=== PATIENT | female | born 1975 | race Caucasian/White ===

== ENCOUNTER 2020-02-24 11:51 | Inpatient (IN) ==
[2020-02-24] MEDS ORDERED: Ipratropium/Albuterol Neb 3 ML IH ONE ×2 (12:21→13:27)
[2020-02-24 12:29] LABS: Basophils % 0.2 %; Eosinophils # 0.1 K/mcL (0.0-0.6); Eosinophils % 0.5 %; Hematocrit 37.1 % (35.3-44.9); Immature Granulocytes % 0.5 % (0-4); Lymphocytes # 2.7 K/mcL (0.6-4.6); Lymphocytes % 21.1 %; Mean Corpuscular HGB Conc 29.6 g/dL (31.6-35.5); Mean Corpuscular Hemoglobin 23.9 pg (28.0-33.3); Mean Corpuscular Volume 80.5 fL (83.0-100.0); Mean Platelet Volume 9.4 fL (9.4-12.4); Monocytes # 0.5 K/mcL (0.0-1.3); Monocytes % 3.6 %; Neutrophils # 9.4 K/mcL (1.6-8.9); Platelet Count 332 K/mcL (140-400); Red Blood Count 4.61 M/mcL (3.82-4.97); Red Cell Distribution Width 16.5 % (11.5-14.5); Segmented Neutrophils % 74.1 %; White Blood Count 12.7 K/mcL (4.3-11.1)
[2020-02-24 12:33] LABS: VBG HCO3 30 mEq/L (21-27); VBG PCO2 51 mmHg (41-51); VBG PH 7.37 pH Units (7.32-7.42); VBG PO2 45 mmHg (25-50)
[2020-02-24 12:40] LABS: INR 1.1; Prothrombin Time 12.2 Seconds (9.4-12.1)
[2020-02-24 12:42] LABS: Activated Partial Thrombo Time 27.1 Seconds (26.0-36.0)
[2020-02-24 12:47] LABS: Troponin I < 0.03 ng/mL (< 0.04)
[2020-02-24 12:49] LABS: Alanine Aminotransferase 18 Units/L (7-52); Albumin 4.1 g/dL (3.5-5.7); Albumin/Globulin Ratio 1.4 (1.1-2.2); Alkaline Phosphatase 65 Units/L (34-104); Aspartate Amino Transferase 16 Units/L (13-39); BUN/Creatinine Ratio 7 (6-26); Bilirubin,Direct 0.1 mg/dL (0.0-0.2); Bilirubin,Indirect 0.3 mg/dL (0.0-1.0); Bilirubin,Total 0.4 mg/dL (0.3-1.0); Blood Urea Nitrogen 6 mg/dL (6-20); Calcium 9.7 mg/dL (8.6-10.3); Carbon Dioxide 30 mEq/L (23-29); Chloride 99 mEq/L (98-107); Globulin 2.9 g/dL (2.4-3.5); Glucose 160 mg/dL (70-105); Osmolality,Calculated 283 (280-300); Sodium 136 mEq/L (136-145); eGFR For African Americans > 60 (> 60); eGFR For Non-African Americans > 60 (> 60)
[2020-02-24] MEDS ORDERED: Nicotine 21 MG PATCH.TD24 TD ONE ×2 (13:27→13:43)
[2020-02-24] MEDS ORDERED: Fluticasone Propionate Nasal 50 MCG/SPRAY BOTTLE NS PRN (13:43)
[2020-02-24] MEDS ORDERED: Dextrose Gel 15 GM/37.5 ML TUBE PO PRN ×2 (13:43)
[2020-02-24] MEDS ORDERED: D5% in Water 1,000 ML IVC PRN (13:43)
[2020-02-24] MEDS ORDERED: Mag Hydrox/Al Hydrox/Simeth 30 ML UDC PO PRN (13:43)
[2020-02-24] MEDS ORDERED: Naloxone 0.4 MG/ML INJ IVP PRN (13:43)
[2020-02-24] MEDS ORDERED: Saline Nasal Spray 44 ML BOTTLE NS PRN (13:43)
[2020-02-24] MEDS ORDERED: Ondansetron 4 MG/2 ML VIAL IVP PRN (13:43)
[2020-02-24] MEDS ORDERED: Acetaminophen 325 MG TABLET PO PRN (13:43)
[2020-02-24] MEDS ORDERED: *HR* Dextrose 50 % in Water (Vial) 50 ML VIAL IVP PRN (13:43)
[2020-02-24] MEDS: ARIPiprazole 5 MG TABLET PO SCH (14:24)
[2020-02-24] MEDS: (Linagliptin [Tradjenta] 5 MG) PO SCH (14:58)
[2020-02-24] MEDS ORDERED: Ipratropium/Albuterol Neb 3 ML IH SCH (15:00)
[2020-02-24] MEDS ORDERED: Albuterol 2.5 MG/3 ML NEBULIZER IH ONE (16:41)
[2020-02-24] MEDS ORDERED: Insulin LISPRO 300 UNITS/3 ML VIAL SQ SCH (18:00)
[2020-02-24] MEDS: MethylPREDNISolone 40 MG/ML VIAL IVP SCH (18:31)
[2020-02-24] MEDS: rOPINIRole 1 MG TABLET PO SCH (20:27)
[2020-02-24] MEDS: *HR* Metformin 500 MG TABLET PO SCH (20:27)
[2020-02-24] MEDS: Gabapentin 400 MG CAPSULE PO SCH (20:27)
[2020-02-24] MEDS: *HR* OxyCODONE/APAP 5/325 TABLET PO SCH (20:27)
[2020-02-24] MEDS: BuPROPion SR (12 HR) 150 MG TABLET PO SCH (20:27)
[2020-02-24] MEDS: (Tiotropium Br/Olodaterol Hcl [Stiolto Respimat Inhaler]) PO SCH (20:29)
[2020-02-24] MEDS: Fluticasone Propionate Nasal 50 MCG/SPRAY BOTTLE NS SCH (20:29)
[2020-02-24] MEDS ORDERED: Gabapentin 300 MG CAPSULE PO SCH (21:00)
[2020-02-24] MEDS ORDERED: Insulin DETEMIR 100 UNIT/ML X5UNITS SQ SCH (21:00)
[2020-02-24] MEDS: Ipratropium/Albuterol Neb 3 ML IH SCH (22:16)
[2020-02-25] MEDS: MethylPREDNISolone 40 MG/ML VIAL IVP SCH ×3 (02:11→17:56)
[2020-02-25] MEDS: Ipratropium/Albuterol Neb 3 ML IH SCH ×4 (04:04→22:21)
[2020-02-25] MEDS: *HR* Enoxaparin 40 MG/0.4 ML SYRINGE SQ SCH (06:23)
[2020-02-25] MEDS ORDERED: Albuterol 2.5 MG/3 ML NEBULIZER IH PRN (08:36)
[2020-02-25] MEDS ORDERED: Gabapentin 300 MG CAPSULE PO SCH (09:00)
[2020-02-25] MEDS: *HR* OxyCODONE/APAP 5/325 TABLET PO SCH ×4 (09:06→20:35)
[2020-02-25] MEDS: BuPROPion SR (12 HR) 150 MG TABLET PO SCH ×2 (09:06→20:35)
[2020-02-25] MEDS: Loratadine 10 MG TABLET PO SCH (09:06)
[2020-02-25] MEDS: ARIPiprazole 5 MG TABLET PO SCH (09:06)
[2020-02-25] MEDS: (Tiotropium Br/Olodaterol Hcl [Stiolto Respimat Inhaler]) PO SCH ×2 (09:07→20:36)
[2020-02-25] MEDS: *HR* Metformin 500 MG TABLET PO SCH ×2 (09:07→20:34)
[2020-02-25] MEDS: Fluticasone Propionate Nasal 50 MCG/SPRAY BOTTLE NS SCH ×2 (09:16→20:34)
[2020-02-25] MEDS: (Roflumilast [Daliresp] 500 MCG) PO SCH (09:16)
[2020-02-25] MEDS: (Linagliptin [Tradjenta] 5 MG) PO SCH (09:16)
[2020-02-25] MEDS: Gabapentin 300 MG CAPSULE PO SCH (17:57)
[2020-02-25] MEDS: Nicotine 21 MG PATCH.TD24 TD SCH (17:58)
[2020-02-25] MEDS: rOPINIRole 1 MG TABLET PO SCH (20:35)
[2020-02-25] MEDS: Gabapentin 400 MG CAPSULE PO SCH (20:35)
[2020-02-26] MEDS: MethylPREDNISolone 40 MG/ML VIAL IVP SCH ×2 (02:07→17:02)
[2020-02-26] MEDS: Ipratropium/Albuterol Neb 3 ML IH SCH ×4 (04:11→22:13)
[2020-02-26] MEDS: *HR* Enoxaparin 40 MG/0.4 ML SYRINGE SQ SCH (04:18)
[2020-02-26 06:43] LABS: Basophils % 0.1 %; Eosinophils # 0.1 K/mcL (0.0-0.6); Eosinophils % 0.4 %; Hematocrit 39.4 % (35.3-44.9); Hemoglobin 11.9 g/dL (11.5-15.4); Immature Granulocytes % 0.9 % (0-4); Lymphocytes # 1.3 K/mcL (0.6-4.6); Lymphocytes % 7.9 %; Mean Corpuscular HGB Conc 30.2 g/dL (31.6-35.5); Mean Corpuscular Hemoglobin 23.8 pg (28.0-33.3); Mean Corpuscular Volume 78.8 fL (83.0-100.0); Mean Platelet Volume 9.2 fL (9.4-12.4); Monocytes % 2.7 %; Neutrophils # 14.5 K/mcL (1.6-8.9); Platelet Count 311 K/mcL (140-400); Red Cell Distribution Width 16.6 % (11.5-14.5); White Blood Count 16.5 K/mcL (4.3-11.1)
[2020-02-26 06:46] LABS: Monocytes # 0.5 K/mcL (0.0-1.3)
[2020-02-26 06:55] LABS: BUN/Creatinine Ratio 22 (6-26); Blood Urea Nitrogen 22 mg/dL (6-20); Calcium 9.7 mg/dL (8.6-10.3); Carbon Dioxide 24 mEq/L (23-29); Chloride 97 mEq/L (98-107); Glucose 283 mg/dL (70-105); Osmolality,Calculated 284 (280-300); Potassium 4.6 mEq/L (3.5-5.1); Sodium 130 mEq/L (136-145); eGFR For African Americans > 60 (> 60); eGFR For Non-African Americans > 60 (> 60)
[2020-02-26] MEDS: (Roflumilast [Daliresp] 500 MCG) PO SCH (09:22)
[2020-02-26] MEDS: (Linagliptin [Tradjenta] 5 MG) PO SCH (09:22)
[2020-02-26] MEDS: (Tiotropium Br/Olodaterol Hcl [Stiolto Respimat Inhaler]) PO SCH ×2 (09:22→20:39)
[2020-02-26] MEDS: Gabapentin 300 MG CAPSULE PO SCH ×2 (09:23→17:01)
[2020-02-26] MEDS: ARIPiprazole 5 MG TABLET PO SCH (09:23)
[2020-02-26] MEDS: Loratadine 10 MG TABLET PO SCH (09:23)
[2020-02-26] MEDS: *HR* OxyCODONE/APAP 5/325 TABLET PO SCH ×4 (09:23→20:38)
[2020-02-26] MEDS: *HR* Metformin 500 MG TABLET PO SCH ×2 (09:23→20:38)
[2020-02-26] MEDS: Nicotine 21 MG PATCH.TD24 TD SCH (09:23)
[2020-02-26] MEDS: BuPROPion SR (12 HR) 150 MG TABLET PO SCH ×2 (09:23→20:38)
[2020-02-26] MEDS: Fluticasone Propionate Nasal 50 MCG/SPRAY BOTTLE NS SCH ×2 (09:24→20:39)
[2020-02-26 09:31] LABS: Estimated Average Glucose 206 mg/dl; Hemoglobin A1C 8.8 %
[2020-02-26] MEDS: Gabapentin 400 MG CAPSULE PO SCH (20:38)
[2020-02-26] MEDS: rOPINIRole 1 MG TABLET PO SCH (20:38)
[2020-02-27] MEDS: MethylPREDNISolone 40 MG/ML VIAL IVP SCH (04:06)
[2020-02-27] MEDS: *HR* Enoxaparin 40 MG/0.4 ML SYRINGE SQ SCH (04:07)
[2020-02-27] MEDS: Ipratropium/Albuterol Neb 3 ML IH SCH ×2 (04:29→08:04)
[2020-02-27 07:01] VITALS: BP 141/81
[2020-02-27] MEDS: ARIPiprazole 5 MG TABLET PO SCH (10:24)
[2020-02-27] MEDS: BuPROPion SR (12 HR) 150 MG TABLET PO SCH (10:24)
[2020-02-27] MEDS: *HR* OxyCODONE/APAP 5/325 TABLET PO SCH ×2 (10:25→13:43)
[2020-02-27] MEDS: Loratadine 10 MG TABLET PO SCH (10:25)
[2020-02-27] MEDS: *HR* Metformin 500 MG TABLET PO SCH (10:25)
[2020-02-27] MEDS: Gabapentin 300 MG CAPSULE PO SCH (10:25)
[2020-02-27] MEDS: Nicotine 21 MG PATCH.TD24 TD SCH (10:26)
[2020-02-27] MEDS: Fluticasone Propionate Nasal 50 MCG/SPRAY BOTTLE NS SCH (10:26)
[2020-02-27] MEDS: (Tiotropium Br/Olodaterol Hcl [Stiolto Respimat Inhaler]) PO SCH (10:27)
[2020-02-27] MEDS: (Roflumilast [Daliresp] 500 MCG) PO SCH (10:27)
[2020-02-27] MEDS: (Linagliptin [Tradjenta] 5 MG) PO SCH (10:27)
== END 2020-02-27 15:31 | disposition home or self-care (01) | DRG 140 ==
LOC: EMEROOGRE 11:51 → INPGRE 13:28
PROVIDERS: ADMIT Family Medicine; ATTEND Family Medicine